=== PATIENT | male | born 1950 | race Caucasian/White ===

== ENCOUNTER 2016-03-12 11:00 | Inpatient (IN) | payer MEDICARE, BC ==
[2016-03-12] VITALS (13 sets, daily range): BP systolic 94–135; BP diastolic 57–85; PULSE 64–76; RESP 16–20; TEMP 97.7–98.1; O2SAT 94–97
[~2016-03-12] VITALS: Ht 177.8 cm; Wt 72.5 kg
[2016-03-12] MEDS ORDERED: PIPERACIL-TAZO 4.5 GM PREMIX 100 ML IV STA (11:28)
[2016-03-12] MEDS ORDERED: VANCOMYCIN INJ 1,000 MG in SODIUM CHLOR 0.9% 250 ML INJ 250 ML IV STA (11:28)
--- NOTE | 2016-03-12 11:39 | PD ---
HPI Chief Complaint: Skin Problem Time Seen by Provider: 11:33 Travel History International Travel<30 days: Yes Contact w/Intl Traveler<30days: Yes Name of Country Traveled to: [facility] Traveled to known affect area: No History of Present Illness HPI Patient comes in at the advice of his primary care doctor and his disability aide for admission for IV antibiotics. Patient reports he had an MRI done last Saturday was found out on to have osteomyelitis in his right second toe. Patient was referred to infectious disease for IV antibiotics however patient was not able to get in with them yet and was instructed to come to the hospital today for admission and to start antibiotics. Patient states he was taking oral antibiotics most recently Bactrim however is been dealing with this infection in his toe for 2 months now. Patient reports some tenderness around the proximal phalanx of the right second toe without radiation. Pain is worse with palpation. Patient denies any drainage from the wound currently. Denies any fevers, nausea, vomiting, chest pain, shortness of breath, or abdominal pain. Patient's primary care doctor is Dr. Blunt and disability aide is Dr. Faust. [facility] Past Medical History Narrative Medical Hemachromatosis Hypertension: Yes Social History Alcohol Use: Yes Tobacco Use: No Substance Use: No Allergies-Medications (Allergen,Severity, Reaction): Coded Allergies: Vicodin (Verified Allergy, Severe, Hives, 03/12/16) Review of Systems Except as stated in HPI: all other systems reviewed are Neg Physical Exam Narrative GENERAL: Well-developed, well nourished, in no acute distress, and non-ill appearing. SKIN: Warm and dry. Erythematous wound noted medial aspect of right second toe proximal phalanx is tender to palpation there is no drainage, crepitus, or streaking noted. HEAD: Atraumatic. Normocephalic. EYES: Pupils equal and round. No scleral icterus. No injection or drainage. ENT: No nasal bleeding or discharge. Mucous membranes pink and moist. NECK: Trachea midline. Supple. No nuclear rigidity. CARDIOVASCULAR: Regular rate and rhythm. No murmur appreciated. Capillary refill less than 2 seconds. RESPIRATORY: No accessory muscle use. No respiratory distress. Clear to auscultation. Breath sounds equal bilaterally. MUSCULOSKELETAL: No obvious deformities. No clubbing. No cyanosis. No edema. Full range of motion. NEUROLOGICAL: Awake and alert. No obvious cranial nerve deficits. Motor grossly within normal limits. Normal speech. PSYCHIATRIC: Appropriate mood and affect; insight and judgment normal. Data Data Last Documented VS Vital Signs Date Time Temp Pulse Resp B/P Pulse Ox O2 Delivery O2 Flow Rate FiO2 03/12/16 11:35 64 18 135/72 95 Room Air 03/12/16 11:02 97.9 Orders Complete Blood Count With Diff (03/12/16 11:28) Comprehensive Metabolic Panel (03/12/16 11:28) Prothrombin Time / Inr (Pt) (03/12/16 11:28) Act Partial Throm Time (Ptt) (03/12/16 11:28) Lactic Acid Sepsis Protocol (03/12/16 11:28) Blood Culture (03/12/16 11:28) Wound Culture And Gram Stain (03/12/16 11:28) Ecg Monitoring (03/12/16 11:28) Iv Access Insert/Monitor (03/12/16 11:28) Oximetry (03/12/16 11:28) Piperacil-Tazo 4.5 Gm Premix (Zosyn 4.5 (03/12/16 11:28) Vancomycin Inj (Vancomycin Inj) (03/12/16 11:28) Admit Order (Ed Use Only) (03/12/16 12:24) Labs Laboratory Tests Test 03/12/16 11:35 White Blood Count 3.8 TH/MM3 Red Blood Count 4.66 MIL/MM3 Hemoglobin 15.1 GM/DL Hematocrit 43.5 % Mean Corpuscular Volume 93.2 FL Mean Corpuscular Hemoglobin 32.4 PG Mean Corpuscular Hemoglobin 34.7 % Concent Red Cell Distribution Width 13.6 % Platelet Count 188 TH/MM3 Mean Platelet Volume 8.6 FL Neutrophils (%) (Auto) 53.8 % Lymphocytes (%) (Auto) 29.9 % Monocytes (%) (Auto) 8.6 % Eosinophils (%) (Auto) 4.5 % Basophils (%) (Auto) 3.2 % Neutrophils # (Auto) 2.1 TH/MM3 Lymphocytes # (Auto) 1.1 TH/MM3 Monocytes # (Auto) 0.3 TH/MM3 Eosinophils # (Auto) 0.2 TH/MM3 Basophils # (Auto) 0.1 TH/MM3 CBC Comment DIFF FINAL Differential Comment Prothrombin Time 11.2 SEC Prothromb Time International 1.0 RATIO Ratio Activated Partial 26.1 SEC Thromboplast Time Sodium Level 138 MEQ/L Potassium Level 4.6 MEQ/L Chloride Level 107 MEQ/L Carbon Dioxide Level 23.2 MEQ/L Anion Gap 8 MEQ/L Blood Urea Nitrogen 19 MG/DL Creatinine 0.98 MG/DL Estimat Glomerular Filtration 77 ML/MIN Rate Random Glucose 103 MG/DL Lactic Acid Level 1.1 mmol/L Calcium Level 8.7 MG/DL Total Bilirubin 0.6 MG/DL Aspartate Amino Transf 22 U/L (AST/SGOT) Alanine Aminotransferase 29 U/L (ALT/SGPT) Alkaline Phosphatase 49 U/L Total Protein 7.1 GM/DL Albumin 3.9 GM/DL MDM Medical Decision Making Medical Screen Exam Complete: Yes Emergency Medical Condition: Yes Differential Diagnosis Osteomyelitis, nonhealing wound, bacteremia, sepsis, other Narrative Course Patient seen and examined. Initial laboratory studies were ordered. Patient started on IV Zosyn and vancomycin. Discussed patient with Dr. Sethi, who saw and evaluated the patient and is in agreement with plan of care and disposition. Discussed all findings and plan care of patient, who was agreeable for admission. All questions were answered. Physician Communication Physician Communication [id number] Costa, who is agreeable to admit the patient. Diagnosis Primary Impression: Osteomyelitis Qualified Code: M86.171 - Acute osteomyelitis of right foot Condition: Stable Surya Duenas Mar 12, 2016 11:39
[2016-03-12 11:56] LABS: AUTOMATED NEUTROPHIL # 2.1 TH/MM3 (1.8-7.7); BASOPHIL # 0.1 TH/MM3 (0-0.2); BASOPHIL % 3.2 % (0.0-2.0); EOSINOPHIL # 0.2 TH/MM3 (0-0.4); EOSINOPHIL % 4.5 % (0.0-4.0); HEMATOCRIT 43.5 % (39.0-51.0); HEMO FLAGS DIFF FINAL; LYMPH % 29.9 % (9.0-44.0); LYMPHOCYTE # 1.1 TH/MM3 (1.0-4.8); MEAN CELL VOLUME 93.2 FL (80.0-100.0); MEAN CORPUSCULAR HEMOGLOBIN 32.4 PG (27.0-34.0); MEAN CORPUSCULAR HGB CONC 34.7 % (32.0-36.0); MONO % 8.6 % (0.0-8.0); NEUT % 53.8 % (16.0-70.0); PLATELET COUNT 188 TH/MM3 (150-450); RED BLOOD COUNT 4.66 MIL/MM3 (4.50-5.90); RED CELL DISTRIBUTION WIDTH 13.6 % (11.6-17.2); WHITE BLOOD COUNT 3.8 TH/MM3 (4.0-11.0)
[2016-03-12 11:59] LABS: APTT (PATIENT) 26.1 SEC (24.3-30.1); PROTHROMBIN TIME - PATIENT 11.2 SEC (9.8-11.6)
[2016-03-12 12:09] LABS: ALKALINE PHOSPHATASE 49 U/L (45-117); TOTAL BILIRUBIN ADULT 0.6 MG/DL (0.2-1.0)
[2016-03-12 12:10] LABS: ALT (GPT) 29 U/L (12-78); ANION GAP 8 MEQ/L (5-15); AST (GOT) 22 U/L (15-37); BICARBONATE 23.2 MEQ/L (21.0-32.0); BLOOD UREA NITROGEN 19 MG/DL (7-18); CHLORIDE 107 MEQ/L (98-107); GLOMERULAR FILTRATION RATE 77 ML/MIN (>89); SODIUM (NA) 138 MEQ/L (136-145)
[2016-03-12 12:14] LABS: POTASSIUM 4.6 MEQ/L (3.5-5.1)
[2016-03-12] MEDS ORDERED: DIAZ10 PO (12:35)
[2016-03-12] MEDS ORDERED: MOBI15TA PO (12:35)
[2016-03-12] MEDS ORDERED: TAMS0.4C4 PO (12:35)
[2016-03-12] MEDS ORDERED: PROS5TAB PO (12:35)
[2016-03-12] MEDS ORDERED: AMLO5TAB2 PO (12:35)
[2016-03-12] MEDS ORDERED: PERC5TAB12 PO (12:35)
[2016-03-12] MEDS ORDERED: OMEP20TA PO (12:42)
--- NOTE | 2016-03-12 13:40 | PD ---
Physical Exam Date Seen by Provider: Mar 12, 2016 Time Seen by Provider: 11:30 Narrative I, Dr. Sethi, have reviewed the advance practice practitioner's documentation and am in agreement, met with the patient face to face, made the diagnosis, and the medical decision making was done by me. *My assessment and Findings: Patient seen and evaluated with PA, please see PA documentation for further details. Here sent in by primary care physician and podiatry for osteomyelitis of the toe. Blood cultures are done and IV antibiotic were initiated in the ER. Patient is admitted to medicine service. He appears stable otherwise vital signs are stable. Laboratory Tests Test 03/12/16 11:35 White Blood Count 3.8 TH/MM3 (4.0-11.0) Monocytes (%) (Auto) 8.6 % (0.0-8.0) Eosinophils (%) (Auto) 4.5 % (0.0-4.0) Basophils (%) (Auto) 3.2 % (0.0-2.0) Blood Urea Nitrogen 19 MG/DL (7-18) Estimat Glomerular Filtration 77 ML/MIN (>89) Rate Data Data Last Documented VS Vital Signs Date Time Temp Pulse Resp B/P Pulse Ox O2 Delivery O2 Flow Rate FiO2 03/12/16 11:35 64 18 135/72 95 Room Air 03/12/16 11:02 97.9 Orders Complete Blood Count With Diff (03/12/16 11:28) Comprehensive Metabolic Panel (03/12/16 11:28) Prothrombin Time / Inr (Pt) (03/12/16 11:28) Act Partial Throm Time (Ptt) (03/12/16 11:28) Lactic Acid Sepsis Protocol (03/12/16 11:28) Blood Culture (03/12/16 11:28) Wound Culture And Gram Stain (03/12/16 11:28) Ecg Monitoring (03/12/16 11:28) Iv Access Insert/Monitor (03/12/16 11:28) Oximetry (03/12/16 11:28) Piperacil-Tazo 4.5 Gm Premix (Zosyn 4.5 (03/12/16 11:28) Vancomycin Inj (Vancomycin Inj) (03/12/16 11:28) Admit Order (Ed Use Only) (03/12/16 12:24) Labs Laboratory Tests Test 03/12/16 11:35 White Blood Count 3.8 TH/MM3 Red Blood Count 4.66 MIL/MM3 Hemoglobin 15.1 GM/DL Hematocrit 43.5 % Mean Corpuscular Volume 93.2 FL Mean Corpuscular Hemoglobin 32.4 PG Mean Corpuscular Hemoglobin 34.7 % Concent Red Cell Distribution Width 13.6 % Platelet Count 188 TH/MM3 Mean Platelet Volume 8.6 FL Neutrophils (%) (Auto) 53.8 % Lymphocytes (%) (Auto) 29.9 % Monocytes (%) (Auto) 8.6 % Eosinophils (%) (Auto) 4.5 % Basophils (%) (Auto) 3.2 % Neutrophils # (Auto) 2.1 TH/MM3 Lymphocytes # (Auto) 1.1 TH/MM3 Monocytes # (Auto) 0.3 TH/MM3 Eosinophils # (Auto) 0.2 TH/MM3 Basophils # (Auto) 0.1 TH/MM3 CBC Comment DIFF FINAL Differential Comment Prothrombin Time 11.2 SEC Prothromb Time International 1.0 RATIO Ratio Activated Partial 26.1 SEC Thromboplast Time Sodium Level 138 MEQ/L Potassium Level 4.6 MEQ/L Chloride Level 107 MEQ/L Carbon Dioxide Level 23.2 MEQ/L Anion Gap 8 MEQ/L Blood Urea Nitrogen 19 MG/DL Creatinine 0.98 MG/DL Estimat Glomerular Filtration 77 ML/MIN Rate Random Glucose 103 MG/DL Lactic Acid Level 1.1 mmol/L Calcium Level 8.7 MG/DL Total Bilirubin 0.6 MG/DL Aspartate Amino Transf 22 U/L (AST/SGOT) Alanine Aminotransferase 29 U/L (ALT/SGPT) Alkaline Phosphatase 49 U/L Total Protein 7.1 GM/DL Albumin 3.9 GM/DL [facility] Medical Record Reviewed: Yes Supervised Visit with ERLIN: Yes Diagnosis Primary Impression: Osteomyelitis Qualified Code: M86.171 - Acute osteomyelitis of right foot Admitting Information Admitting Physician Requests: Admit Condition: Stable Bradley Sethi MD Mar 12, 2016 13:39
--- NOTE | 2016-03-12 15:28 | HHI.HP ---
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 Patient presented to the emergency room for evaluation of right foot second toe swelling with increased drainage and redness. Patient endorses that approximately 2-3 months ago noted that a pressure area on the second toe of the right foot due to a joint deformity. He saw a broadband installer who ordered a spacer to put between his toes. Over time, he noted increased redness, which led to an ulcerated area that was deep enough that you "could put tip of pencil ". In January, patient traveled to the [facility], where he has a home. While over there, he did a lot of walkiing and noted increased swelling. His squeezed "pus" out of it. He went to see a friend of his who is a surgeon in the [facility] and was told to return to the [facility] and see a broadband installer for possible debridement and antibiotics. Patient went to see Dr. Faust for the first time 2 weeks ago. He was put on oral antibiotics and Santyl ointment. Additionally an MRI was done that showed osteomyelitis. According to the , patient was supposed to follow-up with Dr. Laurent (Infectious disease ) for IV antibiotics but they were not able to obtain an appointment. Patient states that the redness has increased, the wound is not as deep but continues to be tender with some lovell drainage. He's had some chills, no fever. Patient presented to the emergency room as he was concerned that the infection was not improving and he was not able to get in to see infectious disease management consultant. He denies any other symptoms, no chest pain, no shortness of breath, no nausea, no vomiting, no diarrhea. He completed antibiotics-Bactrim this morning. Cultures were obtained at Dr. Faust but doesn't know results. Patient states that his hemochromatosis is stable, his last phlebotomy was many years ago, they used to be more frequently. Ferritin levels have been stable. He was originally diagnosed in 1993. Other than the joint problems, he has no other complications associated with condition. Pt. was evaluated in the emergency room , laboratory workup was completed and was essentially unremarkable. No WBC elevation, lactic acid was normal. Cultures were obtained, patient was started on empiric antibiotics. Patient is admitted for further evaluation and treatment. (Terri Valdes) Review of Systems Constitutional: COMPLAINS OF: Chills, DENIES: Diaphoretic episodes, Fatigue, Fever, Weight gain, Weight loss, Dizziness, Change in appetite, Night Sweats Endocrine: DENIES: Heat/cold intolerance, Polydipsia, Polyuria, Polyphagia Eyes: DENIES: Blurred vision, Diplopia, Eye inflammation, Eye pain, Vision loss , Photosensitivity, Double Vision Ears, nose, mouth, throat: DENIES: Tinnitus, Hearing loss, Vertigo, Nasal discharge, Oral lesions, Throat pain, Hoarseness, Ear Pain, Running Nose, Epistaxis, Sinus Pain, Toothache, Odynophagia Respiratory: DENIES: Apneas, Cough, Snoring, Wheezing, Hemoptysis, Sputum production, Shortness of breath Cardiovascular: DENIES: Chest pain, Palpitations, Syncope, Dyspnea on Exertion , PND, Lower Extremity Edema, Orthopnea, Claudication Gastrointestinal: DENIES: Abdominal pain, Black stools, Bloody stools, Constipation, Diarrhea, Nausea, Vomiting, Difficulty Swallowing, Anorexia Genitourinary: DENIES: Sexual dysfunction, Urinary frequency, Urinary incontinence, Urgency, Hematuria, Dysuria, Nocturia, Penile Discharge, Testicular Pain, Testicular Swelling Musculoskeletal: COMPLAINS OF: Joint pain, Joint Swelling, DENIES: Muscle aches, Stiffness, Back pain, Neck pain Integumentary: DENIES: Abnormal pigmentation, Nail changes, Pruritus, Rash Hematologic/lymphatic: DENIES: Bruising, Lymphadenopathy Immunologic/allergic: DENIES: Eczema, Urticaria Neurologic: DENIES: Abnormal gait, Headache, Localized weakness, Paresthesias, Seizures, Speech Problems, Tremor, Poor Balance Psychiatric: DENIES: Anxiety, Confusion, Mood changes, Depression, Hallucinations, Agitation, Suicidal Ideation, Homicidal Ideation, Delusions ( Terri Valdes) Past Family Social History Past Medical History Hemochromatosis, diagnosed in 1993, used to have frequent phlebotomies, last one was many years ago. Condition is managed by primary care Osteoarthritis Hypertension BPH Was told that he has vascular disease, possibly varicose, has not been formally diagnosed Past Surgical History Bilateral knee replacement Left hip replacement Right rotator cuff repair Hernia surgery Reported Medications Reported Meds & Active Scripts Active Reported Omeprazole 20 Mg Tab 20 Mg PO DAILY Mobic (Meloxicam) 15 Mg Tab 15 Mg PO DAILY Amlodipine (Amlodipine Besylate) 5 Mg Tab 5 Mg PO HS Tamsulosin (Tamsulosin HCl) 0.4 Mg Cap 0.4 Mg PO DAILY Proscar (Finasteride) 5 Mg Tab 5 Mg PO DAILY Do not crush. Valium (Diazepam) 10 Mg Tab 10 Mg PO HS PRN Percocet (Oxycodone-Acetaminophen) 5-325 mg Tab 1 Tab PO Q6H PRN (Terri Valdes) Allergies: Coded Allergies: Vicodin (Verified Allergy, Severe, Hives, 03/12/16) Active Ordered Medications Inpatient Medications Amlodipine Besylate (Norvasc) 5 mg HS PO ; Start 03/12/16 at 21:00 Clindamycin Phosphate/Sodium Chloride (Cleocin Inj/NS Inj) 104 ml @ 208 mls/hr Q8H IV ; Start 03/12/16 at 14:00 Diazepam (Valium) 10 mg HS PRN PO INSOMNIA; Start 03/12/16 at 14:00 Finasteride (Proscar) 5 mg DAILY PO ; Start 03/13/16 at 09:00 Levofloxacin/ Dextrose 100 ml @ 100 mls/hr Q24H IV ; Start 03/12/16 at 15:00 Meloxicam (Mobic) 15 mg DAILY PO ; Start 03/13/16 at 09:00 Oxycodone/ Acetaminophen (Percocet 5-325 Mg) 1 tab Q6H PRN PO PAIN; Start at 14:00 Pantoprazole Sodium (Protonix) 20 mg DAILY PO ; Start 03/13/16 at 09:00 Piperacillin Sod/ Tazobactam Sod 100 ml @ 200 mls/hr ONCE STAT IV Last administered on 03/12/16t 11:46; Start 03/12/16 at 11:28; Stop 03/12/16 at 11:57 ; Status DC Tamsulosin HCl 0.4 mg 0.4 mg DAILY PO ; Start 03/13/16 at 09:00 Vancomycin HCl/ Sodium Chloride (Vancomycin Inj/ NS 250 ml Inj) 250 ml @ 250 mls/hr ONCE STAT IV Last administered on 03/12/16t 13:41; Start 03/12/16 at 11 :28; Stop 03/12/16 at 12:27; Status DC Family History Mother's disease, history of Alzheimer's Father , history of hemochromatosis with cardiovascular involvement, history of CAD, CABG, [place] Brother, , from glioblastoma Social History , lives with . Retired. Spends rodriguez in [facility]. No smoking, drinks beer daily 6-7 daily, an occasional "bowl" of Marijuana to help him sleep. (Terri Valdes) Physical Exam Vital Signs Vital Signs Date Time Temp Pulse Resp B/P Pulse Ox O2 Delivery O2 Flow Rate FiO2 03/12/16 11:35 64 18 135/72 95 Room Air 03/12/16 11:02 97.9 76 20 128/85 95 Room Air Physical Exam GENERAL: This is a well-nourished, well-developed patient, in no apparent distress. SKIN: Round, erythematous wound noted medial aspect of right second toe proximal phalanx, tender to palpation, no drainage, crepitus, or streaking noted. HEAD: Atraumatic. Normocephalic. HEAD: Atraumatic. Normocephalic. No temporal or scalp tenderness. EYES: Pupils equal round and reactive. Extraocular motions intact. No scleral icterus. No injection or drainage. ENT: Nose without bleeding, purulent drainage or septal hematoma. Throat without erythema, tonsillar hypertrophy or exudate. Uvula midline. Airway patent. NECK: Trachea midline. No JVD or lymphadenopathy. Supple, nontender, no meningeal signs. CARDIOVASCULAR: Regular rate and rhythm without murmurs, gallops, or rubs. RESPIRATORY: Clear to auscultation. Breath sounds equal bilaterally. No wheezes , rales, or rhonchi. GASTROINTESTINAL: Abdomen soft, non-tender, nondistended. No hepato-splenomegaly , or palpable masses. No guarding. MUSCULOSKELETAL: Extremities without clubbing, cyanosis, or edema. Bilat pedal pulses 2+. Joint deformities to toes. Webbed toes to left foot, second and third toes. Right foot second toe with wound as noted above. NEUROLOGICAL: Awake, alert, oriented x 3. No focal deficits. Laboratory Laboratory Tests Test 03/12/16 11:35 White Blood Count 3.8 Red Blood Count 4.66 Hemoglobin 15.1 Hematocrit 43.5 Mean Corpuscular Volume 93.2 Mean Corpuscular Hemoglobin 32.4 Mean Corpuscular Hemoglobin 34.7 Concent Red Cell Distribution Width 13.6 Platelet Count 188 Mean Platelet Volume 8.6 Neutrophils (%) (Auto) 53.8 Lymphocytes (%) (Auto) 29.9 Monocytes (%) (Auto) 8.6 Eosinophils (%) (Auto) 4.5 Basophils (%) (Auto) 3.2 Neutrophils # (Auto) 2.1 Lymphocytes # (Auto) 1.1 Monocytes # (Auto) 0.3 Eosinophils # (Auto) 0.2 Basophils # (Auto) 0.1 CBC Comment DIFF FINAL Differential Comment Prothrombin Time 11.2 Prothromb Time International 1.0 Ratio Activated Partial 26.1 Thromboplast Time Sodium Level 138 Potassium Level 4.6 Chloride Level 107 Carbon Dioxide Level 23.2 Anion Gap 8 Blood Urea Nitrogen 19 Creatinine 0.98 Estimat Glomerular Filtration 77 Rate Random Glucose 103 Lactic Acid Level 1.1 Calcium Level 8.7 Total Bilirubin 0.6 Aspartate Amino Transf 22 (AST/SGOT) Alanine Aminotransferase 29 (ALT/SGPT) Alkaline Phosphatase 49 Total Protein 7.1 Albumin 3.9 Date/Time Procedure Status Source Growth 03/12/16 11:35 Gram Stain Received Wound Toe Pending 03/12/16 11:35 Wound Culture Received Wound Toe Pending 03/12/16 11:35 Aerobic Blood Culture Received Blood Peripheral Pending 03/12/16 11:35 Anaerobic Blood Culture Received Blood Peripheral Pending (Terri ValdesP) Result Diagram: 03/12/16 1135 03/12/16 1135 Assessment and Plan Problem List: (1) Osteomyelitis (2) Hemochromatosis (3) Cellulitis of toe of right foot (4) Alcohol abuse, daily use (5) Hypertension (6) Osteoarthritis (7) Failure of outpatient treatment Assessment and Plan Admit to Dr. Costa 65-year-old white male with history of hemochromatosis with joint deformities, presented to emergency room for evaluation of right foot second toe ulceration that has not improved after being on oral antibiotics. Had MRI done, positive for osteomyelitis. -Continue with empiric antibiotics, follow cultures Dr. Faust has been consulted for evaluation WBC scan ordered per podiatry, follow up on results - Patient indicates he is concerned about losing toe, he will prefer to do IV antibiotics for now. History hemochromatosis, with prior phlebotomy Continue to monitor Hypertension, stable Continue home medications Osteoarthritis, with prior history of joint replacement surgery Continue with home medications Daily alcohol use -Alcohol abuse counseling completed Continue with Valium when necessary We will start folic acid and thiamine -Monitor for withdrawal symptoms SCDs for DVT prophylaxis PPI for GI prophylaxis Plan of care has been discussed with the patient and his , their questions have been answered in detail. Plan of care discussed with attending and registered nurse. Further management of the patient will be dependent on the hospital course Patient requires inpatient admission for anticipated stay greater than 2 days for acute osteomyelitis right foot left toe that has failed outpatient therapy. Patient is at risk for complications that can result in sepsis, loss of limb. Patient requires inpatient admission for IV antibiotics, possible surgery, evaluation by podiatry. Anticipated discharge back to home with home health care when stable This patient was seen by myself and Dr. Costa, this H&P is written on his behalf (Terri Valdes) Assessment and Plan PT is seen & Examined d/w PT d/w Terri alberts w above cont current tx ID & podiatry input awaited will f/u (Radha Costa MD) Physician Certification 2 Midnight Certification Type: Admission for Inpatient Services Order for Inpatient Services The services are ordered in accordance with Medicare regulations or non- Medicare payer requirements, as applicable. In the case of services not specified as inpatient-only, they are appropriately provided as inpatient services in accordance with the 2-midnight benchmark. Estimated LOS (days): 2 2 days is the estimated time the patient will need to remain in the hospital, assuming treatment plan goals are met and no additional complications. Post-Hospital Plan: Home Health (Terri Valdes) Problem Qualifiers (1) Osteomyelitis: Qualified Code: M86.171 - Acute osteomyelitis of right foot (2) Hemochromatosis: Qualified Code: E83.118 - Other hemochromatosis (3) Hypertension: Qualified Code: I10 - Essential hypertension (4) Osteoarthritis: Qualified Code: M19.90 - Osteoarthritis, unspecified osteoarthritis type, unspecified site Terri Valdes Mar 12, 2016 15:28 Radha Costa MD Mar 12, 2016 17:35
[2016-03-12] MEDS: CLINDAMYCIN INJ 600 MG in SODIUM CHLORIDE 0.9% INJ 100 ML IV SCH ×2 (17:29→23:12)
[2016-03-12] MEDS: LEVOFLOXACIN 500 MG PREMIX INJ 100 ML IV SCH (17:54)
[2016-03-12] MEDS: DIAZEPAM 10 MG TAB PO PRN (23:20)
[2016-03-12] MEDS: amLODIPine BESYLATE 5 MG TAB PO SCH (23:20)
[2016-03-13] VITALS: BP 125/76; PULSE 64; RESP 17; TEMP 96.7; O2SAT 96
[2016-03-13] MEDS: CLINDAMYCIN INJ 600 MG in SODIUM CHLORIDE 0.9% INJ 100 ML IV SCH ×4 (05:06→21:31)
--- NOTE | 2016-03-13 07:50 | PD.CONS ---
History of Present Illness Service Podiatry Consult Requested By ED Reason for Consult Osteomyelitis Primary Care Physician Waldemar Ventura, Diagnoses: History of Present Illness 65-year-old male presented to the emergency room for evaluation of right foot second toe swelling with increased drainage and redness. Patient states that approximately 2-3 months ago noted that he had an area of pressure developing on the second toe of the right foot due to a joint deformity. He saw a operations analyst who ordered a spacer to put between his toes. He then notes increased redness and ulceration. He then traveled to the [facility], where he has a home. While over there, he continued to do a lot of walking, in spite of the issue, and his noted pus in the area. ling. He saw a surgeon friend in [facility] who told him to seek care immediately upon his return to the [facility]. Patient went to see Dr. Faust for the first time 2 weeks ago. He was put on oral antibiotics and Santyl ointment. Additionally an MRI was done that showed probable osteomyelitis, and patient was scheduled to consult with Dr. Laurent outpatient for IV antibiotics, but the redness has increased, and patient came in to ED for eval. Past Family Social History Allergies: Coded Allergies: Vicodin (Verified Allergy, Severe, Hives, 03/12/16) Past Medical History Hemochromatosis Osteoarthritis Hypertension BPH Likely PVD, needs vascular consultation in-house to confirm Past Surgical History Bilateral knee replacement Left hip replacement Right rotator cuff repair Hernia surgery Active Ordered Medications Current Medications Medications (Trade) Dose Ordered Sig/Ameena Route Start Time Stop Time Status Last Admin (Norvasc) 5 mg HS PO 03/12/16 21:00 03/12/16 23:20 (Valium) 10 mg HS PRN PO 03/12/16 14:00 03/12/16 23:20 (Proscar) 5 mg DAILY PO 03/13/16 09:00 (Mobic) 15 mg DAILY PO 03/13/16 09:00 (Protonix) 20 mg DAILY PO 03/13/16 09:00 (Percocet 5-325 Mg) 1 tab Q6H PRN PO 03/12/16 14:00 Tamsulosin HCl 0.4 mg 0.4 mg DAILY PO 03/13/16 09:00 Levofloxacin/ Dextrose 100 ml @ 100 mls/hr Q24H IV 03/12/16 15:00 03/12/16 17:54 (Cleocin Inj/NS Inj) 104 ml @ 208 mls/hr Q8H IV 03/12/16 14:00 03/13/16 05:06 (Folate) 1 mg DAILY PO 03/13/16 09:00 (Vitamin B1) 100 mg DAILY PO 03/13/16 09:00 Family History Mother's disease, history of Alzheimer's Father , history of hemochromatosis with cardiovascular involvement, history of CAD, CABG, NM Brother, , from glioblastoma Social History , lives with . Retired. Spends [place]dr[place] in [facility]. Denies smoking, drinks beer daily 6-7 daily, and occasional Marijuana Physical Exam Vital Signs Vital Signs Date Time Temp Pulse Resp B/P Pulse Ox O2 Delivery O2 Flow Rate FiO2 03/13/16 04:12 03/13/16 00:00 96.7 64 17 125/76 96 03/12/16 20:58 97.7 70 17 112/58 97 03/12/16 19:34 98.1 72 18 108/67 96 Room Air 03/12/16 19:16 67 18 112/65 95 Room Air 03/12/16 19:14 65 18 95 03/12/16 18:00 67 18 98/64 96 Room Air 03/12/16 17:00 67 18 94/57 96 Room Air 03/12/16 16:00 72 16 102/60 95 Room Air 03/12/16 15:00 65 18 117/71 95 03/12/16 14:00 64 18 118/68 94 03/12/16 13:00 66 18 115/66 94 03/12/16 12:00 68 18 114/68 95 Room Air 03/12/16 11:35 64 18 135/72 95 Room Air 03/12/16 11:02 97.9 76 20 128/85 95 Room Air Physical Exam R 2nd digit medial PIPJ ulceration with fibrotic base. No visible/palpable bone now. No gross edema or erythema. Mild serous drainage. Palpable pedal pulse. Webbing to 2nd/3rd digits bilaterally. Bony prominence medially to PIPJ 2nd digit bilaterally Laboratory Laboratory Tests Test 03/12/16 03/13/16 11:35 04:51 White Blood Count 3.8 Red Blood Count 4.66 Hemoglobin 15.1 Hematocrit 43.5 Mean Corpuscular Volume 93.2 Mean Corpuscular Hemoglobin 32.4 Mean Corpuscular Hemoglobin 34.7 Concent Red Cell Distribution Width 13.6 Platelet Count 188 Mean Platelet Volume 8.6 Neutrophils (%) (Auto) 53.8 Lymphocytes (%) (Auto) 29.9 Monocytes (%) (Auto) 8.6 Eosinophils (%) (Auto) 4.5 Basophils (%) (Auto) 3.2 Neutrophils # (Auto) 2.1 Lymphocytes # (Auto) 1.1 Monocytes # (Auto) 0.3 Eosinophils # (Auto) 0.2 Basophils # (Auto) 0.1 CBC Comment DIFF FINAL Differential Comment Prothrombin Time 11.2 Prothromb Time International 1.0 Ratio Activated Partial 26.1 Thromboplast Time Sodium Level 138 Potassium Level 4.6 Chloride Level 107 Carbon Dioxide Level 23.2 Anion Gap 8 Blood Urea Nitrogen 19 Creatinine 0.98 Estimat Glomerular Filtration 77 Rate Random Glucose 103 Lactic Acid Level 1.1 Calcium Level 8.7 Total Bilirubin 0.6 Aspartate Amino Transf 22 (AST/SGOT) Alanine Aminotransferase 29 (ALT/SGPT) Alkaline Phosphatase 49 Total Protein 7.1 Albumin 3.9 Erythrocyte Sedimentation Rate 3 C-Reactive Protein LESS THAN 0.29 Date/Time Procedure Status Source Growth 03/12/16 11:35 Gram Stain - Final Resulted Wound Toe 03/12/16 11:35 Wound Culture Resulted Wound Toe Pending 03/12/16 11:35 Aerobic Blood Culture Received Blood Peripheral Pending 03/12/16 11:35 Anaerobic Blood Culture Received Blood Peripheral Pending Result Diagram: 03/12/16 1135 03/12/16 1135 Imaging Ceretec WBC scan pending Assessment and Plan Assessment and Plan Possible osteomyelitis R foot 2nd toe Bony exostosis L 2nd toe Ceretec scan pending to determine further treatment Continue IV antibiotics Patient discussed that if infected, he would like to move forward with amputation R 2nd toe and is interested in bone removal L 2nd toe Chance North DPM Mar 13, 2016 07:50
[2016-03-13 08:00] VITALS: BP 138/80; PULSE 81; RESP 16; TEMP 95.3; O2SAT 97
[2016-03-13] MEDS: MELOXICAM 15 MG TAB PO SCH (08:27)
[2016-03-13] MEDS: THIAMINE HCL 100 MG TAB PO SCH (08:27)
[2016-03-13] MEDS: FINASTERIDE 5 MG TAB PO SCH (08:27)
[2016-03-13] MEDS: PANTOPRAZOLE SOD 20 MG DELAYED RELEASE TAB PO SCH (08:27)
[2016-03-13] MEDS: TAMSULOSIN HCL 0.4 MG CAP PO SCH (08:27)
[2016-03-13] MEDS: FOLIC ACID 1 MG TAB PO SCH (08:27)
[2016-03-13 12:00] VITALS: BP 115/73; PULSE 75; RESP 16; TEMP 97.9; O2SAT 96
--- NOTE | 2016-03-13 12:09 | HHI.PR ---
Subjective Subjective Remarks no pain no fever nasal drainage, has seasonal allergies no cp no sob spoke to finishing supervisor, wants to have amputation Review of Systems Constitutional Constitutional Remarks 12 point ROS completed, negative except as noted above Vitals/Results Intake & Output 03/12/16 03/12/16 03/13/16 15:00 23:00 07:00 Intake Total 1180 ml 340 ml Output Total 900 ml 1300 ml Balance 280 ml -960 ml Intake Oral 1180 ml 240 ml IV Total 100 ml Output Urine Total 900 ml 1300 ml # Voids 1 Vital Signs Vital Signs Date Time Temp Pulse Resp B/P Pulse Ox O2 Delivery O2 Flow Rate FiO2 03/13/16 08:00 95.3 81 16 138/80 97 03/13/16 04:12 03/13/16 00:00 96.7 64 17 125/76 96 03/12/16 20:58 97.7 70 17 112/58 97 03/12/16 19:34 98.1 72 18 108/67 96 Room Air 03/12/16 19:16 67 18 112/65 95 Room Air 03/12/16 19:14 65 18 95 03/12/16 18:00 67 18 98/64 96 Room Air 03/12/16 17:00 67 18 94/57 96 Room Air 03/12/16 16:00 72 16 102/60 95 Room Air 03/12/16 15:00 65 18 117/71 95 03/12/16 14:00 64 18 118/68 94 03/12/16 13:00 66 18 115/66 94 CBC/BMP: 03/12/16 1135 03/12/16 1135 Lab Results Laboratory Tests Test 03/13/16 04:51 Erythrocyte Sedimentation Rate 3 mm/hr C-Reactive Protein LESS THAN 0.29 MG/DL Physical Exam General General Appearance: Well Developed, Well Nourished, No Acute Distress, Comfortable Eyes Eye Exam: Pupils Equal, Pupils Reactive Ears & Nose Ears & Nose Exam: Nasal Mucosa [place]line Throat Throat Exam: Oral Mucosa [place] & Moist Neck Neck Exam: Neck Supple, Trachea Midline Pulmonary Resp Exam: Clear Bilaterally, No Distress Cardiology CV Exam: Regular, Good Perfusion Gastrointestinal/Abdomen GI Exam: Soft, Non-Tender, Bowel Sounds Present, Non-Distended Musculoskeletal MS Exam: Good Strength MS Remarks joint deformities to toes webbed toes left foot ulcerated area to right foot second toe, erythematous, fibrotic base Integumentary Skin Exam: Warm, Dry, Ulcer(s) Extremeties Extremities Exam: No Edema, Pedal Pulses Palpable Neurologic Neuro Exam: Alert, Awake, Oriented, Speech Clear, Moving All Extremities, No Focal Deficits Psychiatric Psych Exam: Appropriate Responses VTE Prophylaxis VTE Prophylaxis Device: SCDs Assessment/Plan Problem List: (1) Cellulitis of toe of right foot (2) Osteomyelitis (3) Failure of outpatient treatment (4) Hypertension (5) Osteoarthritis (6) Hemochromatosis (7) Alcohol abuse, daily use Assessment/Plan 65-year-old white male with history of hemochromatosis with joint deformities, presented to emergency room for evaluation of right foot second toe ulceration that has not improved after being on oral antibiotics. Had MRI done, positive for osteomyelitis. -Continue with empiric antibiotics, follow cultures Dr. North has evaluated, waiting for WBC scan. Possible amputation of right foot toe and also bone removal L 2nd toe -pt. agreeable with amputation History hemochromatosis, with prior phlebotomy Continue to monitor Hypertension, stable Continue home medications Osteoarthritis, with prior history of joint replacement surgery Continue with home medications Daily alcohol use-stable -Alcohol abuse counseling completed Continue with Valium when necessary Continue with folic acid and thiamine -Monitor for withdrawal symptoms SCDs for DVT prophylaxis PPI for GI prophylaxis possible surgery tomorrow, f/u wbc scan results C/O seasonal allergies, Claritin 10 mg po daily. D/W RN D/W Dr. Costa D/W pt. This patient was seen by myself and Dr. Costa, this note is written on his behalf Problem Qualifiers (1) Osteomyelitis: Qualified Code: M86.171 - Acute osteomyelitis of right foot (2) Hypertension: Qualified Code: I10 - Essential hypertension (3) Osteoarthritis: Qualified Code: M19.90 - Osteoarthritis, unspecified osteoarthritis type, unspecified site (4) Hemochromatosis: Qualified Code: E83.118 - Other hemochromatosis Terri Valdes Mar 13, 2016 12:09
[2016-03-13] MEDS ORDERED: LORATADINE 10 MG TAB PO ONE (12:15)
--- NOTE | 2016-03-13 13:33 | PD.CONS ---
History of Present Illness Service Infectious disease Consult Requested By Dr Bryce Costa Reason for Consult Evaluate patient with osteomyelitis of the right second toe Primary Care Physician Waldemar Ventura DO Diagnoses: History of Present Illness Patient seen and examined. Records reviewed. Patient is a 65-year-old male admitted to the hospital for further evaluation of his right second toe. Patient has had a deformity on his right second toe and the deformity rubs on his big toe. He saw a shank piece tacker about 11 months ago and he was told to put a spacer between his toes. About 2 months ago he started noticing an ulcer on that deformity on his second toe. Over the last several weeks he started having swelling redness and drainage and he saw a shank piece tacker and he was given an antibiotic orally as well as prescribed Santyl ointment to put over the ulcer. An MRI was done and it showed probable osteomyelitis in the second toe and he was supposed to see an infectious disease specialist as an outpatient, however the redness and the swelling increased so he presented to the hospital for further evaluation and treatment. The redness was mostly on the second toe. He did not develop any redness on the dorsum of his right foot. He has not had any fevers. There's been no other complaint as far as nausea vomiting or diarrhea. Infectious disease consultation requested to evaluate the patient for possible osteomyelitis. Patient is currently being evaluated by podiatry before any surgical intervention is done. According to the patient the redness and the swelling has improved since he's been in the hospital, although he is not really been putting any weight on it as well as not putting any shoe. Review of Systems Constitutional: DENIES: Fever, Chills, Night Sweats Eyes: DENIES: Eye pain Ears, nose, mouth, throat: DENIES: Nasal discharge, Oral lesions, Throat pain, Ear Pain, Sinus Pain, Toothache Respiratory: DENIES: Cough, Sputum production, Shortness of breath Cardiovascular: DENIES: Chest pain, Palpitations, Syncope Gastrointestinal: DENIES: Abdominal pain, Diarrhea, Nausea, Vomiting Genitourinary: DENIES: Urgency, Dysuria Musculoskeletal: COMPLAINS OF: Joint pain, Stiffness Integumentary: DENIES: Rash Immunologic/allergic: DENIES: Urticaria Neurologic: DENIES: Headache Psychiatric: DENIES: Anxiety, Confusion Past Family Social History Allergies: Coded Allergies: Vicodin (Verified Allergy, Severe, Hives, 03/12/16) Past Medical History Hemochromatosis Osteoarthritis Hypertension BPH Past Surgical History Bilateral knee replacement Left hip replacement Right rotator cuff repair Hernia surgery Active Ordered Medications Norvasc Clindamycin Valium Proscar Folic acid Levaquin Claritin Mobic Percocet Protonix Flomax Thiamine Social History , lives with . Retired. No smoking Drinks beer daily 6-7 daily Occasional Marijuana Denies IVDU Physical Exam Vital Signs Vital Signs Date Time Temp Pulse Resp B/P Pulse Ox O2 Delivery O2 Flow Rate FiO2 03/13/16 08:00 95.3 81 16 138/80 97 03/13/16 04:12 03/13/16 00:00 96.7 64 17 125/76 96 03/12/16 20:58 97.7 70 17 112/58 97 03/12/16 19:34 98.1 72 18 108/67 96 Room Air 03/12/16 19:16 67 18 112/65 95 Room Air 03/12/16 19:14 65 18 95 03/12/16 18:00 67 18 98/64 96 Room Air 03/12/16 17:00 67 18 94/57 96 Room Air 03/12/16 16:00 72 16 102/60 95 Room Air 03/12/16 15:00 65 18 117/71 95 03/12/16 14:00 64 18 118/68 94 Physical Exam GENERAL: This is a well-nourished, well-developed male, awake and alert, in no apparent distress. SKIN: Cool and dry. No generalized rash or ecchymosis HEAD: Atraumatic. Normocephalic. No temporal or scalp tenderness. EYES: Thinking entirely. Pupils equal round and reactive. Extraocular movements are full and intact. No scleral icterus. No injection or drainage. ENT: Nose without bleeding, or purulent drainage. Moist oral mucosa. Throat without erythema, or exudate. Uvula midline. Airway patent. NECK: Trachea midline. No JVD or lymphadenopathy. Supple, nontender, no meningeal signs. CARDIOVASCULAR: Regular rate and rhythm without murmurs, gallops, or rubs. RESPIRATORY: Clear to auscultation. Breath sounds equal bilaterally. No wheezes , rales, or rhonchi. GASTROINTESTINAL: Abdomen soft, non-tender, nondistended. No hepato-splenomegaly , or palpable masses. No guarding. MUSCULOSKELETAL: Extremities without clubbing, cyanosis, or edema. No joint tenderness, effusion, or edema noted. No calf tenderness. He has webbed 2nd and 3rd toes bilaterally. There is a small ulcer on medial aspect of 2nd toe, with small amount of yellow drainage and some crusting at the ulcer, and he has mild erythema and swelling on that second toe. No redness seen on dorsum of his R foot. NEUROLOGICAL: Awake and alert. Cranial nerves II through XII intact. Motor and sensory grossly within normal limits. Five out of 5 muscle strength in all muscle groups. Normal speech. PSYCH: NOrmal affect. Calm and cooperative LINE: PIV with no evidence of infection Laboratory Laboratory Tests Test 03/13/16 04:51 Erythrocyte Sedimentation Rate 3 C-Reactive Protein LESS THAN 0.29 Date/Time Procedure Status Source Growth 03/12/16 11:35 Gram Stain - Final Resulted Wound Toe 03/12/16 11:35 Wound Culture Resulted Wound Toe Pending 03/12/16 11:35 Aerobic Blood Culture - Preliminary Resulted Blood Peripheral NO GROWTH IN 1 DAY 03/12/16 11:35 Anaerobic Blood Culture - Preliminary Resulted Blood Peripheral NO GROWTH IN 1 DAY Result Diagram: 03/12/16 1135 03/12/16 1135 Assessment and Plan Assessment and Plan IMPRESSION Cellulitis R second toe, with an ulcer, wiith possible underlying osteomyelitis Hx hemochromatosis RECOMMENDATION Continue Levaquin Give dose of Vanco On Clinda - continue for now Follow C/S Work-up in progress per podiatry If amputation to be done, he will not need long course of IV Abx I will follow along with you Thank you for this consultation Discussed Condition With Explained plan to the patient Cherelle Galvan MD Mar 13, 2016 13:33
[2016-03-13] MEDS: LEVOFLOXACIN 500 MG PREMIX INJ 100 ML IV SCH (14:54)
[2016-03-13 16:00] VITALS: BP 94/66; PULSE 81; RESP 16; TEMP 97.8; O2SAT 95
[2016-03-13 20:00] VITALS: BP 128/75; PULSE 76; RESP 17; TEMP 96.6; O2SAT 98
[2016-03-13] MEDS: amLODIPine BESYLATE 5 MG TAB PO SCH (21:31)
[2016-03-13] MEDS: DIAZEPAM 10 MG TAB PO PRN (21:32)
[2016-03-14] VITALS: BP 121/71; PULSE 71; RESP 17; TEMP 97; O2SAT 98
[2016-03-14] MEDS: CLINDAMYCIN INJ 600 MG in SODIUM CHLORIDE 0.9% INJ 100 ML IV SCH ×3 (05:16→22:45)
[2016-03-14 08:00] VITALS: BP 159/85; PULSE 78; RESP 18; TEMP 95.4; O2SAT 98
[2016-03-14] MEDS: FINASTERIDE 5 MG TAB PO SCH (08:39)
[2016-03-14] MEDS: FOLIC ACID 1 MG TAB PO SCH (08:40)
[2016-03-14] MEDS: LORATADINE 10 MG TAB PO SCH (08:40)
[2016-03-14] MEDS: MELOXICAM 15 MG TAB PO SCH (08:40)
[2016-03-14] MEDS: TAMSULOSIN HCL 0.4 MG CAP PO SCH (08:40)
[2016-03-14] MEDS: PANTOPRAZOLE SOD 20 MG DELAYED RELEASE TAB PO SCH (08:40)
[2016-03-14] MEDS: THIAMINE HCL 100 MG TAB PO SCH (08:40)
--- NOTE | 2016-03-14 10:26 | HHI.PR ---
Subjective History of Present Illness I am OK pain is in control No fever or chills No N/V No abd pain offers no other c/o is at bedside Vitals/Results Intake & Output 03/13/16 03/13/16 03/14/16 15:00 23:00 07:00 Intake Total 480 ml 240 ml 240 ml Output Total 1000 ml 400 ml 500 ml Balance -520 ml -160 ml -260 ml Intake Oral 480 ml 240 ml 240 ml IV Total 0 ml Output Urine Total 1000 ml 400 ml 500 ml Vital Signs Vital Signs Date Time Temp Pulse Resp B/P Pulse Ox O2 Delivery O2 Flow Rate FiO2 03/14/16 08:00 95.4 78 18 159/85 98 03/14/16 00:00 97.0 71 17 121/71 98 03/13/16 20:00 96.6 76 17 128/75 98 03/13/16 16:00 97.8 81 16 94/66 95 03/13/16 12:00 97.9 75 16 115/73 96 CBC/BMP: 03/12/16 1135 03/12/16 1135 Physical Exam General General Appearance: Well Nourished, No Acute Distress, Comfortable Eyes Eye Exam: Pupils Equal, Sclera White, Extraocular Movement Intact Ears & Nose Ears & Nose Exam: Nasal Mucosa Aten Throat Throat Exam: Oral Mucosa Aten & Moist Neck Neck Exam: Neck Supple, Trachea Midline Pulmonary Resp Exam: Clear Bilaterally, Breath Sounds Equal, No Distress Cardiology CV Exam: Regular, Normal Sinus Rhythm Gastrointestinal/Abdomen GI Exam: Soft, Non-Tender, Bowel Sounds Present Musculoskeletal MS Remarks R foot dressing intact Integumentary Skin Exam: Warm, Dry, Ulcer(s) Extremeties Extremities Exam: No Edema, Pedal Pulses Palpable Neurologic Neuro Exam: Alert, Awake, Oriented, Speech Clear, Moving All Extremities Psychiatric Psych Exam: Appropriate Responses VTE Prophylaxis VTE Prophylaxis Device: SCDs Assessment/Plan Problem List: (1) Cellulitis of toe of right foot (2) Osteomyelitis (3) Failure of outpatient treatment (4) Hypertension (5) Osteoarthritis (6) Hemochromatosis (7) Alcohol abuse, daily use Assessment/Plan 65-year-old white male with history of hemochromatosis with joint deformities, presented to emergency room for evaluation of right foot second toe ulceration that has not improved after being on oral antibiotics. Had MRI done, positive for osteomyelitis. -Continue with empiric antibiotics, follow cultures Dr. North has evaluated, waiting for WBC scan. Possible amputation of right foot toe if +ve osteo and also bone removal L 2nd toe. - ID input appreciated - analgesic prn History hemochromatosis, with prior phlebotomy Continue to monitor Hypertension, stable Continue home medications Osteoarthritis, with prior history of joint replacement surgery Continue with home medications Daily alcohol use-stable -Alcohol abuse counseling completed Continue with Valium when necessary Continue with folic acid and thiamine -Monitor for withdrawal symptoms SCDs for DVT prophylaxis PPI for GI prophylaxis Claritin 10 mg po daily. D/W pt. will f/u Problem Qualifiers (1) Osteomyelitis: Qualified Code: M86.171 - Acute osteomyelitis of right foot (2) Hypertension: Qualified Code: I10 - Essential hypertension (3) Osteoarthritis: Qualified Code: M19.90 - Osteoarthritis, unspecified osteoarthritis type, unspecified site (4) Hemochromatosis: Qualified Code: E83.118 - Other hemochromatosis Radha Costa MD Mar 14, 2016 10:26
[2016-03-14 12:00] VITALS: BP 108/54; PULSE 64; RESP 17; TEMP 96.1; O2SAT 95
[2016-03-14] MEDS ORDERED: ONDANSETRON HCL 4 MG/2 ML VIAL IV PUSH ONE (12:00)
[2016-03-14] MEDS ORDERED: ePHEDrine/NS 50 MG/5 ML SYR IV ONE (12:00)
[2016-03-14] MEDS ORDERED: PROPOFOL 200 MG/20 ML AMP IV ONE ×2 (12:00)
[2016-03-14] MEDS: LEVOFLOXACIN 500 MG PREMIX INJ 100 ML IV SCH (14:38)
--- NOTE | 2016-03-14 15:03 | RADRPT ---
EXAM DATE/TIME: 03/13/2016 13:45 [facility] COMPARISON: No previous studies available for comparison. EXTERNAL COMPARISON : [facility], MRI Right Foot W/WO Contrast, March 06, 2016 INDICATIONS : Abscess second toe right foot. DOSE: 20.1 mCi Tc99m Ceretec labeled white blood cells IV SPECT IMAGIN hrs, 20 hrs IMAGNG: SPECT/CT imaging with fusion was performed. RADIATION DOSE: 5.83 CTDIvol (mGy) MEDICAL HISTORY : Hypertension. Peripheral vascular disease. Hemochromatosis. SURGICAL HISTORY : Total knee replacement, left. Total knee replacement, right. Rotator cuff, right. Left hip replaceme nt and hernia surgery. ENCOUNTER: Initial ACUITY: 7 - 11 months PAIN SCALE: 0/10 LOCATION: Foot. TECHNIQUE: Following the in vitro labeling of autologous white cells and reinjection, whole body scan was perfor med at the specified times. SPECT imaging was performed at the specified time in sagittal, axial and coronal planes. Attenuation correction was performed with the computed tomography and both the atten uation correction and non-attenuation corrected data sets were reviewed. FINDINGS: The examinations demonstrates subtle increased uptake in the soft tissues beneath the second and thir d digits of the right foot. There is no bony uptake to suggest osteomyelitis. CONCLUSION: There is some soft tissue uptake surrounding the second digit of the right foot distally, no definite abnormal uptake is seen within the bone to suggest osteomyelitis. Castillo Wood MD on March 14, 2016 at 14:54 Board Certified Radiologist. This report was verified electronically.
[2016-03-14 16:00] VITALS: BP 142/76; PULSE 74; RESP 17; TEMP 95.7; O2SAT 97
[2016-03-14 20:00] VITALS: BP 119/71; PULSE 77; RESP 18; TEMP 95.7; O2SAT 95
[2016-03-14] MEDS ORDERED: GENTAMICIN SULFATE 80 MG/2 ML VIAL ONE (20:36)
[2016-03-14] MEDS ORDERED: LIDOCAINE HCL 2% 50 ML VIAL ONE (20:36)
--- NOTE | 2016-03-14 22:26 | HHI.PR ---
Immediate Post Op Note Procedure Date: Mar 14, 2016 Pre Op Diagnosis: Painful exostosis R and L 2nd toes Post Op Diagnosis: same Surgeon: Chance North DPM Director Of Human Resources(s): Staff Procedure: Partial phalangectomy/ostectomy R and L 2nd toes Findings: Consistent with diagnosis. Chronic wound history to R medial 2nd toe with repetitive infection. Suspicion for osteomyelitis per MRI, WBC Ceretec scan was negative for osteomyelitis. patient consented to procedure bilaterally to reduce infection recurrence and pain. L foot incision made dorsomedially at PIP joint area 2nd toe. Bone exposed and removed to medial proximal phalangeal head. Irrigation with NS, followed by primary closure with 3-0 nylon. Ulceration medial 2nd toe 0.6cm diameter. R foot two semielliptical incisions made to remove medial ulceration to 2nd toe. Bone exposed. Removed medial aspect of proximal phalangeal head, followed by irrigation and primary closure. Bone sent to pathology for gross and micro examination. No necrotic tissue noted. No purulence. No sign of infection. Complications: None Specimen(s) removed: Bone R 2nd toe Bone L 2nd toe, both to pathology Estimated blood loss: Minimal Anesthesia: General, Local (10mL 2% lidocaine plain) Drains: None IVF Tourniquet time (min at mmHg) n/a Patient to: PACU Patient Condition: Good Date/Time of Procedure: SEE SURGICAL CARE RECORD Chance North DPM Mar 14, 2016 22:26
[2016-03-14] MEDS ORDERED: DO NOT ADM ANY ANTICOAGULANT DRUGS XX PRN (22:45)
--- NOTE | 2016-03-14 23:20 | RADRPT ---
EXAM DATE/TIME: 03/14/2016 22:34 [facility] COMPARISON: No previous studies available for comparison. INDICATIONS : Post op right foot surgery for osteomyelitis. MEDICAL HISTORY : Osteomyelitis. Hypertension. Peripheral vascular disease. Hemochromatosis. SURGICAL HISTORY : Total knee replacement, left. Total knee replacement, right. Rotator cuff, right. Left hip replacemen t and hernia surgery. ENCOUNTER: Initial ACUITY: 1 day PAIN SCORE: 2/10 LOCATION: Right foot. FINDINGS: Three view examination of the right foot demonstrates primary degenerative changes involving the righ t foot. No acute fracture or joint dislocation. The bony structures are grossly intact. There is prom inent chronic changes at the ankle joint. There is a small heel spur. No focal soft tissue swelling.. CONCLUSION: Primary degenerative changes are seen throughout the right foot. Ke Jolly MD on March 14, 2016 at 23:17 Board Certified Radiologist. This report was verified electronically.
--- NOTE | 2016-03-14 23:21 | RADRPT ---
EXAM DATE/TIME: 03/14/2016 22:37 [facility] COMPARISON: No previous studies available for comparison. INDICATIONS : Post op left foot surgery for osteomyelitis. MEDICAL HISTORY : Osteomyelitis. Hypertension. Peripheral vascular disease. Hemochromatosis. SURGICAL HISTORY : Total knee replacement, left. Total knee replacement, right. Rotator cuff, right. Left hip replacemen t and hernia surgery. ENCOUNTER: Initial ACUITY: 1 day PAIN SCORE: 3/10 LOCATION: Left foot. FINDINGS: Three view examination of the left foot demonstrates primary degenerative changes are noted throughou t the left foot. The bony structures are grossly intact. No acute fracture joint dislocation. There i s prominent degenerative arthritis at the ankle joint. There is a small heel spur. CONCLUSION: Primary degenerative changes are noted throughout the left foot. Ke Jolly MD on March 14, 2016 at 23:19 Board Certified Radiologist. This report was verified electronically.
[2016-03-14] MEDS: amLODIPine BESYLATE 5 MG TAB PO SCH (23:29)
[2016-03-14] MEDS: oxyCODONE/ACETAMINOPHEN 5 MG/325 MG TAB PO PRN (23:29)
[2016-03-14 23:50] LABS: HEMATOCRIT 37.8 % (39.0-51.0); MEAN CELL VOLUME 92.8 FL (80.0-100.0); MEAN CORPUSCULAR HEMOGLOBIN 32.4 PG (27.0-34.0); MEAN CORPUSCULAR HGB CONC 34.9 % (32.0-36.0); PLATELET COUNT 175 TH/MM3 (150-450); RED BLOOD COUNT 4.07 MIL/MM3 (4.50-5.90); RED CELL DISTRIBUTION WIDTH 13.3 % (11.6-17.2); REVIEW FLAG FINAL; WHITE BLOOD COUNT 4.3 TH/MM3 (4.0-11.0)
[2016-03-15] VITALS: BP 177/93; PULSE 81; RESP 18; TEMP 95.4; O2SAT 98
[2016-03-15] MEDS: CLINDAMYCIN INJ 600 MG in SODIUM CHLORIDE 0.9% INJ 100 ML IV SCH (05:35)
[2016-03-15] MEDS: oxyCODONE/ACETAMINOPHEN 5 MG/325 MG TAB PO PRN ×4 (05:36→22:44)
[2016-03-15 08:00] VITALS: BP 125/66; PULSE 79; RESP 17; TEMP 97.4; O2SAT 96
[2016-03-15] MEDS: FINASTERIDE 5 MG TAB PO SCH (09:33)
[2016-03-15] MEDS: PANTOPRAZOLE SOD 20 MG DELAYED RELEASE TAB PO SCH (09:33)
[2016-03-15] MEDS: MELOXICAM 15 MG TAB PO SCH (09:33)
[2016-03-15] MEDS: THIAMINE HCL 100 MG TAB PO SCH (09:33)
[2016-03-15] MEDS: LORATADINE 10 MG TAB PO SCH (09:33)
[2016-03-15] MEDS: TAMSULOSIN HCL 0.4 MG CAP PO SCH (09:33)
[2016-03-15] MEDS: FOLIC ACID 1 MG TAB PO SCH (09:33)
--- NOTE | 2016-03-15 11:38 | HHI.PR ---
Subjective History of Present Illness s/p surgery yesterday pain is in control/pain meds are helping No fever or chills No N/V No abd pain offers no other c/o friend is at bedside Vitals/Results Intake & Output 03/14/16 03/14/16 03/15/16 15:00 23:00 07:00 Intake Total 700 ml 1000 ml 340 ml Output Total 700 ml 305 ml 850 ml Balance 0 ml 695 ml -510 ml Intake Oral 700 ml 0 ml 240 ml IV Total 0 ml 400 ml 100 ml Other 600 ml Output Urine Total 700 ml 300 ml 850 ml Estimated Blood Loss 5 ml Other 0 ml # Bowel Movements 0 Vital Signs Vital Signs Date Time Temp Pulse Resp B/P Pulse Ox O2 Delivery O2 Flow Rate FiO2 03/15/16 08:00 97.4 79 17 125/66 96 03/15/16 00:00 95.4 81 18 177/93 98 03/14/16 23:00 97.9 69 12 146/85 98 Nasal Cannula 3 03/14/16 22:45 69 12 142/94 98 Nasal Cannula 3 03/14/16 22:30 79 14 130/89 99 Nasal Cannula 3 03/14/16 22:23 97.9 87 14 130/90 98 Nasal Cannula 3 03/14/16 20:00 95.7 77 18 119/71 95 03/14/16 16:00 95.7 74 17 142/76 97 03/14/16 12:00 96.1 64 17 108/54 95 CBC/BMP: 03/14/16 2322 03/12/16 1135 Lab Results Laboratory Tests Test 03/14/16 23:22 White Blood Count 4.3 TH/MM3 Red Blood Count 4.07 MIL/MM3 Hemoglobin 13.2 GM/DL Hematocrit 37.8 % Mean Corpuscular Volume 92.8 FL Mean Corpuscular Hemoglobin 32.4 PG Mean Corpuscular Hemoglobin 34.9 % Concent Red Cell Distribution Width 13.3 % Platelet Count 175 TH/MM3 Mean Platelet Volume 8.3 FL Physical Exam General General Appearance: Well Nourished, No Acute Distress, Comfortable Eyes Eye Exam: Pupils Equal, Sclera White, Extraocular Movement Intact Ears & Nose Ears & Nose Exam: Nasal Mucosa [place] Throat Throat Exam: Oral Mucosa [place] & Moist Neck Neck Exam: Neck Supple, Trachea Midline Pulmonary Resp Exam: Clear Bilaterally, Breath Sounds Equal, No Distress Cardiology CV Exam: Regular, Normal Sinus Rhythm Gastrointestinal/Abdomen GI Exam: Soft, Non-Tender, Bowel Sounds Present Musculoskeletal MS Remarks b/l feet dressing intact Integumentary Skin Exam: Warm, Dry, Ulcer(s) Extremeties Extremities Exam: No Edema, Pedal Pulses Palpable Neurologic Neuro Exam: Alert, Awake, Oriented, Speech Clear, Moving All Extremities Psychiatric Psych Exam: Appropriate Responses VTE Prophylaxis VTE Prophylaxis Device: SCDs Assessment/Plan Problem List: (1) Cellulitis of toe of right foot (2) Osteomyelitis (3) Failure of outpatient treatment (4) Hypertension (5) Osteoarthritis (6) Hemochromatosis (7) Alcohol abuse, daily use Assessment/Plan 65-year-old white male with history of hemochromatosis with joint deformities, presented to emergency room for evaluation of right foot second toe ulceration that has not improved after being on oral antibiotics. Had MRI done, positive for osteomyelitis. -Continue with empiric antibiotics, follow cultures s/p WBC scan. neg for osteo - sp I&D R 2 nd toe & l 2 nd toePartial phalangectomy/ostectomy R and L 2nd toes - - wound care / dressing change - ID f/u for abx rec - analgesic prn History hemochromatosis, with prior phlebotomy Continue to monitor Hypertension, stable Continue home medications Osteoarthritis, with prior history of joint replacement surgery Continue with home medications Daily alcohol use-stable -Alcohol abuse counseling completed Continue with Valium when necessary Continue with folic acid and thiamine -Monitor for withdrawal symptoms PPI for GI prophylaxis Claritin 10 mg po daily. ss for d./c planning / d.c home when ok w Podiatry & ID D/W pt. will f/u Problem Qualifiers (1) Osteomyelitis: Qualified Code: M86.171 - Acute osteomyelitis of right foot (2) Hypertension: Qualified Code: I10 - Essential hypertension (3) Osteoarthritis: Qualified Code: M19.90 - Osteoarthritis, unspecified osteoarthritis type, unspecified site (4) Hemochromatosis: Qualified Code: E83.118 - Other hemochromatosis Radha Costa MD Mar 15, 2016 11:38
[2016-03-15 12:00] VITALS: BP 135/74; PULSE 100; RESP 17; TEMP 97.3; O2SAT 95
--- NOTE | 2016-03-15 12:21 | HHI.IDPN ---
Subjective Subjective Remarks Notes reviewed C/O pain R foot Had surgery both feet, to remove bony prominence in the 2 2nd toes. No evidence of infection in R 2nd toe WBC scan negative for osteo Path sent, but no culture sent Antibiotics Levaquin Clindamycin Lines PIV Past Medical History Hemochromatosis Osteoarthritis Hypertension BPH Past Surgical History Bilateral knee replacement Left hip replacement Right rotator cuff repair Hernia surgery Allergies: Coded Allergies: Vicodin (Verified Allergy, Severe, Hives, 03/12/16) Objective . Vital Signs Date Time Temp Pulse Resp B/P Pulse Ox O2 Delivery O2 Flow Rate FiO2 03/15/16 08:00 97.4 79 17 125/66 96 03/15/16 00:00 95.4 81 18 177/93 98 03/14/16 23:00 97.9 69 12 146/85 98 Nasal Cannula 3 03/14/16 22:45 69 12 142/94 98 Nasal Cannula 3 03/14/16 22:30 79 14 130/89 99 Nasal Cannula 3 03/14/16 22:23 97.9 87 14 130/90 98 Nasal Cannula 3 03/14/16 20:00 95.7 77 18 119/71 95 03/14/16 16:00 95.7 74 17 142/76 97 03/14/16 03/14/16 03/15/16 15:00 23:00 07:00 Intake Total 700 ml 1000 ml 340 ml Output Total 700 ml 305 ml 850 ml Balance 0 ml 695 ml -510 ml Intake Oral 700 ml 0 ml 240 ml IV Total 0 ml 400 ml 100 ml Other 600 ml Output Urine Total 700 ml 300 ml 850 ml Estimated Blood Loss 5 ml Other 0 ml # Bowel Movements 0 . Laboratory Tests Test 03/14/16 23:22 White Blood Count 4.3 TH/MM3 Red Blood Count 4.07 MIL/MM3 Hemoglobin 13.2 GM/DL Hematocrit 37.8 % Mean Corpuscular Volume 92.8 FL Mean Corpuscular Hemoglobin 32.4 PG Mean Corpuscular Hemoglobin 34.9 % Concent Red Cell Distribution Width 13.3 % Platelet Count 175 TH/MM3 Mean Platelet Volume 8.3 FL Imaging Foot X-Ray 03/14/16 0000 Signed Impressions: Service Date/Time: Monday, March 14, 2016 22:37 - CONCLUSION: Primary degenerative changes are noted throughout the left foot. Ke Jolly MD Foot X-Ray 1/25/17 0000 Signed Impressions: Service Date/Time: Monday, March 14, 2016 22:34 - CONCLUSION: Primary degenerative changes are seen throughout the right foot. Ke Jolly MD Tumor Localization 03/13/16 0000 Signed Impressions: Service Date/Time: Sunday, March 13, 2016 13:45 - CONCLUSION: There is some soft tissue uptake surrounding the second digit of the right foot distally, no definite abnormal uptake is seen within the bone to suggest osteomyelitis. Castillo Wood MD Physical Exam GENERAL: male, awake and alert, in no apparent distress. SKIN: Cool and dry. No generalized rash or ecchymosis HEENT: No scleral icterus. No injection or drainage. Moist oral mucosa. NECK: Trachea midline. No JVD or lymphadenopathy. Supple, nontender, no meningeal signs. CARDIOVASCULAR: Regular rate and rhythm without murmurs, gallops, or rubs. RESPIRATORY: Clear to auscultation. Breath sounds equal bilaterally. No wheezes , rales, or rhonchi. GASTROINTESTINAL: Abdomen soft, non-tender, nondistended. No guarding. MUSCULOSKELETAL: Extremities without clubbing, cyanosis, or edema.Dry and intact dressings to both feet NEUROLOGICAL: Grossly non-focal PSYCH: NOrmal affect. Calm and cooperative LINE: PIV with no evidence of infection Assessment & Plan Remarks IMPRESSION Cellulitis R second toe, with an ulcer, better - no osteo on WBC scan and on surgery S/P surgery to both second toes Hx hemochromatosis RECOMMENDATION Continue Levaquin Continue Clinda Change Abx to oral and give 10 days D/W Dr Costa Explained to patient Stable from ID standpoint Cherelle Galvan MD Mar 15, 2016 12:21
[2016-03-15] MEDS ORDERED: LEVOFLOXACIN 750 MG TAB PO SCH (14:00)
[2016-03-15] MEDS: CLINDAMYCIN 150 MG CAP PO SCH ×2 (15:28→22:48)
[2016-03-15 16:00] VITALS: BP 117/75; PULSE 87; RESP 17; TEMP 97.1; O2SAT 94
--- NOTE | 2016-03-15 16:09 | EKG ---
Date Performed: 03/14/2016 Time Performed: 15:25:40 PTAGE: 65 years EKG: Sinus rhythm MARKED LEFT AXIS DEVIATION POSSIBLE RIGHT VENTRICULAR CONDUCTION DELAY ABNORMAL ECG NO PREVIOUS TRACING DOCTOR: Zana Ness Interpretating Date/Time 03/15/2016 16:08:19
[2016-03-15 20:00] VITALS: BP 136/93; PULSE 81; RESP 20; TEMP 98.2; O2SAT 93
--- NOTE | 2016-03-15 21:38 | PD.POD ---
Subjective Podiatric Problems R and L painful exostosis, s/p exostectomy/partial phalangectomy R and L 2nd digits Past Med/Surg/Social History Social History Smoking Status: Never Smoker Objective Vital Signs Vital Signs Date Time Temp Pulse Resp B/P Pulse Ox O2 Delivery O2 Flow Rate FiO2 03/15/16 16:00 97.1 87 17 117/75 94 03/15/16 12:00 97.3 100 17 135/74 95 03/15/16 08:00 97.4 79 17 125/66 96 03/15/16 00:00 95.4 81 18 177/93 98 03/14/16 23:00 97.9 69 12 146/85 98 Nasal Cannula 3 03/14/16 22:45 69 12 142/94 98 Nasal Cannula 3 03/14/16 22:30 79 14 130/89 99 Nasal Cannula 3 03/14/16 22:23 97.9 87 14 130/90 98 Nasal Cannula 3 Coded Allergies: Vicodin (Verified Allergy, Severe, Hives, 03/12/16) Physical Exam Remarks Bandages clean, dry, intact R and L foot Assessment & Plan A/P S/p exostectomy R and L 2nd digits 03/14/16 Ok to leave current bandage clean, dry, intact until next Saturday. Follow up in [place] office. Ok with d/c home tomorrow. Weightbearing as tolerated in surgical shoes Chance North DPM Mar 15, 2016 21:38
[2016-03-15] MEDS: amLODIPine BESYLATE 5 MG TAB PO SCH (22:43)
[2016-03-15] MEDS: DIAZEPAM 10 MG TAB PO PRN (22:48)
[2016-03-16] VITALS: BP 128/76; PULSE 76; RESP 18; TEMP 97.4; O2SAT 95
[2016-03-16] MEDS: CLINDAMYCIN 150 MG CAP PO SCH (06:01)
[2016-03-16] MEDS: oxyCODONE/ACETAMINOPHEN 5 MG/325 MG TAB PO PRN (06:01)
[2016-03-16 08:00] VITALS: BP 136/96; PULSE 74; RESP 14; TEMP 97.9; O2SAT 97
[2016-03-16] MEDS: FINASTERIDE 5 MG TAB PO SCH (08:39)
[2016-03-16] MEDS: FOLIC ACID 1 MG TAB PO SCH (08:39)
[2016-03-16] MEDS: MELOXICAM 15 MG TAB PO SCH (08:39)
[2016-03-16] MEDS: LORATADINE 10 MG TAB PO SCH (08:39)
[2016-03-16] MEDS: PANTOPRAZOLE SOD 20 MG DELAYED RELEASE TAB PO SCH (08:39)
[2016-03-16] MEDS: TAMSULOSIN HCL 0.4 MG CAP PO SCH (08:39)
[2016-03-16] MEDS: THIAMINE HCL 100 MG TAB PO SCH (08:39)
--- NOTE | 2016-03-16 10:47 | HHI.PR ---
Subjective History of Present Illness s/p surgery yesterday pain is in control/pain meds are helping No fever or chills No N/V No abd pain offers no other c/o friend is at bedside Vitals/Results Intake & Output 03/15/16 03/15/16 03/16/16 15:00 23:00 07:00 Intake Total 340 ml 480 ml 0 ml Output Total 600 ml 350 ml 600 ml Balance -260 ml 130 ml -600 ml Intake Oral 340 ml 480 ml 0 ml IV Total 0 ml 0 ml Output Urine Total 600 ml 350 ml 600 ml # Bowel Movements 0 Vital Signs Vital Signs Date Time Temp Pulse Resp B/P Pulse Ox O2 Delivery O2 Flow Rate FiO2 03/16/16 08:00 97.9 74 14 136/96 97 03/16/16 00:00 97.4 76 18 128/76 95 03/16/16 00:00 97.4 76 18 128/76 95 03/15/16 20:00 98.2 81 20 136/93 93 03/15/16 16:00 97.1 87 17 117/75 94 03/15/16 12:00 97.3 100 17 135/74 95 CBC/BMP: 03/14/16 2322 03/12/16 1135 Physical Exam General General Appearance: Well Nourished, No Acute Distress, Comfortable Eyes Eye Exam: Pupils Equal, Sclera White, Extraocular Movement Intact Ears & Nose Ears & Nose Exam: Nasal Mucosa [place] Throat Throat Exam: Oral Mucosa [place] & Moist Neck Neck Exam: Neck Supple, Trachea Midline Pulmonary Resp Exam: Clear Bilaterally, Breath Sounds Equal, No Distress Cardiology CV Exam: Regular, Normal Sinus Rhythm Gastrointestinal/Abdomen GI Exam: Soft, Non-Tender, Bowel Sounds Present Musculoskeletal MS Remarks b/l feet dressing intact Integumentary Skin Exam: Warm, Dry, Ulcer(s) Extremeties Extremities Exam: No Edema, Pedal Pulses Palpable Neurologic Neuro Exam: Alert, Awake, Oriented, Speech Clear, Moving All Extremities Psychiatric Psych Exam: Appropriate Responses VTE Prophylaxis VTE Prophylaxis Device: SCDs Assessment/Plan Problem List: (1) Cellulitis of toe of right foot (2) Osteomyelitis (3) Failure of outpatient treatment (4) Hypertension (5) Osteoarthritis (6) Hemochromatosis (7) Alcohol abuse, daily use Assessment/Plan 65-year-old white male with history of hemochromatosis with joint deformities, presented to emergency room for evaluation of right foot second toe ulceration that has not improved after being on oral antibiotics. Had MRI done, positive for osteomyelitis. -Continue with empiric antibiotics, follow cultures s/p WBC scan. neg for osteo - sp I&D R 2 nd toe & l 2 nd toePartial phalangectomy/ostectomy R and L 2nd toes - - wound care / dressing change - ID f/u for abx rec - analgesic prn History hemochromatosis, with prior phlebotomy Continue to monitor Hypertension, stable Continue home medications Osteoarthritis, with prior history of joint replacement surgery Continue with home medications Daily alcohol use-stable -Alcohol abuse counseling completed Continue with Valium when necessary Continue with folic acid and thiamine -Monitor for withdrawal symptoms PPI for GI prophylaxis Claritin 10 mg po daily. ss for d./c planning / d.c home when ok w Podiatry & ID D/W pt. will f/u Problem Qualifiers (1) Osteomyelitis: Qualified Code: M86.171 - Acute osteomyelitis of right foot (2) Hypertension: Qualified Code: I10 - Essential hypertension (3) Osteoarthritis: Qualified Code: M19.90 - Osteoarthritis, unspecified osteoarthritis type, unspecified site (4) Hemochromatosis: Qualified Code: E83.118 - Other hemochromatosis Radha Costa MD Mar 16, 2016 10:47
--- NOTE | 2016-03-16 10:48 | HHI.PR ---
Subjective History of Present Illness feels well pain is in control No fever or chills No N/V No abd pain ambulating w surgical boots eager to go home offers no other c/o Vitals/Results Intake & Output 03/15/16 03/15/16 03/16/16 15:00 23:00 07:00 Intake Total 340 ml 480 ml 0 ml Output Total 600 ml 350 ml 600 ml Balance -260 ml 130 ml -600 ml Intake Oral 340 ml 480 ml 0 ml IV Total 0 ml 0 ml Output Urine Total 600 ml 350 ml 600 ml # Bowel Movements 0 Vital Signs Vital Signs Date Time Temp Pulse Resp B/P Pulse Ox O2 Delivery O2 Flow Rate FiO2 03/16/16 08:00 97.9 74 14 136/96 97 03/16/16 00:00 97.4 76 18 128/76 95 03/16/16 00:00 97.4 76 18 128/76 95 03/15/16 20:00 98.2 81 20 136/93 93 03/15/16 16:00 97.1 87 17 117/75 94 03/15/16 12:00 97.3 100 17 135/74 95 CBC/BMP: 03/14/16 2322 03/12/16 1135 Physical Exam General General Appearance: Well Nourished, No Acute Distress, Comfortable Eyes Eye Exam: Pupils Equal, Sclera White, Extraocular Movement Intact Ears & Nose Ears & Nose Exam: Nasal Mucosa [place] Throat Throat Exam: Oral Mucosa [place] & Moist Neck Neck Exam: Neck Supple, Trachea Midline Pulmonary Resp Exam: Clear Bilaterally, Breath Sounds Equal, No Distress Cardiology CV Exam: Regular, Normal Sinus Rhythm Gastrointestinal/Abdomen GI Exam: Soft, Non-Tender, Bowel Sounds Present Musculoskeletal MS Remarks b/l feet dressing intact Integumentary Skin Exam: Warm, Dry, Ulcer(s) Extremeties Extremities Exam: No Edema, Pedal Pulses Palpable Neurologic Neuro Exam: Alert, Awake, Oriented, Speech Clear, Moving All Extremities Psychiatric Psych Exam: Appropriate Responses VTE Prophylaxis VTE Prophylaxis Device: SCDs Assessment/Plan Problem List: (1) Cellulitis of toe of right foot (2) Osteomyelitis (3) Failure of outpatient treatment (4) Hypertension (5) Osteoarthritis (6) Hemochromatosis (7) Alcohol abuse, daily use Assessment/Plan 65-year-old white male with history of hemochromatosis with joint deformities, presented to emergency room for evaluation of right foot second toe ulceration that has not improved after being on oral antibiotics. Had MRI done, positive for osteomyelitis But ceretec scan neg for osteo - sp I&D R 2 nd toe & l 2 nd toePartial phalangectomy/ostectomy R and L 2nd toes - - wound care / dressing change per podiatry - ID rec po abx for 10 days -analgesic prn History hemochromatosis, with prior phlebotomy Continue to monitor Hypertension, stable Continue home medications Osteoarthritis, with prior history of joint replacement surgery Continue with home medications Daily alcohol use-stable -Alcohol abuse, stop drinking alcohol No evid of withdrawal symptoms PPI for GI prophylaxis Claritin 10 mg po daily. medically stable for d/c d./c home today f/u pcp f/u podiatry next wk see orders total time spent > 38 min Problem Qualifiers (1) Osteomyelitis: Qualified Code: M86.171 - Acute osteomyelitis of right foot (2) Hypertension: Qualified Code: I10 - Essential hypertension (3) Osteoarthritis: Qualified Code: M19.90 - Osteoarthritis, unspecified osteoarthritis type, unspecified site (4) Hemochromatosis: Qualified Code: E83.118 - Other hemochromatosis Radha Costa MD Mar 16, 2016 10:48 Radha Costa MD Mar 16, 2016 10:48
[2016-03-16] MEDS ORDERED: LEVA750T PO (11:03)
[2016-03-16] MEDS ORDERED: CLIN150 PO (11:03)
[2016-03-16] MEDS ORDERED: OXYC1TAB63 PO (11:03)
--- NOTE | 2016-03-16 19:11 | HHI.DS ---
Discharge Summary Admission Date Mar 12, 2016 at 12:26 Discharge Date: Mar 16, 2016 Admitting Diagnosis osteomyelitis (1) Osteomyelitis (2) Hemochromatosis (3) Cellulitis of toe of right foot (4) Alcohol abuse, daily use (5) Hypertension (6) Osteoarthritis (7) Failure of outpatient treatment Brief History This was a 65-year-old male with past medical history of hemochromatosis, chronic joint deformities secondary to hemochromatosis, webbed toes, hypertension. Patient presented to the emergency room for evaluation of right foot second toe swelling with increased drainage and redness. Patient endorsed that approximately 2-3 months ago noted that a pressure area on the second toe of the right foot due to a joint deformity. He saw a sales activity manager who ordered a spacer to put between his toes. Over time, he noted increased redness, which led to an ulcerated area that was deep enough that you "could put tip of pencil ". In January, patient traveled to the [facility], where he has a home. While over there, he did a lot of walkiing and noted increased swelling. His squeezed "pus" out of it. He went to see a friend of his who is a surgeon in the [facility] and was told to return to the [facility] and see a sales activity manager for possible debridement and antibiotics. Patient went to see Dr. aFust for the first time 2 weeks ago. He was put on oral antibiotics and Santyl ointment. Additionally an MRI was done that showed osteomyelitis. According to the , patient was supposed to follow-up with Dr. Laurent (Infectious disease ) for IV antibiotics but they were not able to obtain an appointment. Patient stated that the redness has increased, the wound is not as deep but continues to be tender with some lovell drainage. He's had some chills, no fever. Patient presented to the emergency room as he was concerned that the infection was not improving and he was not able to get in to see infectious disease independent crop consultant. He denied any other symptoms, no chest pain, no shortness of breath, no nausea, no vomiting, no diarrhea. He completed antibiotics-Bactrim this morning. Cultures were obtained at Dr. Faust but doesn't know results. Patient stated that his hemochromatosis is stable, his last phlebotomy was many years ago, they used to be more frequently. Ferritin levels had been stable. He was originally diagnosed in 1993. Other than the joint problems, he had no other complications associated with condition. Pt. was evaluated in the emergency room , laboratory workup was completed and was essentially unremarkable. CBC/BMP: 03/14/16 2322 03/12/16 1135 Significant Findings Laboratory Tests Test 03/14/16 23:22 Red Blood Count 4.07 MIL/MM3 (4.50-5.90) Hematocrit 37.8 % (39.0-51.0) Imaging Last Impressions Foot X-Ray 03/14/16 0000 Signed Impressions: Service Date/Time: Monday, March 14, 2016 22:37 - CONCLUSION: Primary degenerative changes are noted throughout the left foot. Ke Jolly MD Tumor Localization 03/13/16 0000 Signed Impressions: Service Date/Time: Sunday, March 13, 2016 13:45 - CONCLUSION: There is some soft tissue uptake surrounding the second digit of the right foot distally, no definite abnormal uptake is seen within the bone to suggest osteomyelitis. Castillo Wood MD PE at Discharge Physical Exam General General Appearance: Well Nourished, No Acute Distress, Comfortable Eyes Eye Exam: Pupils Equal, Sclera White, Extraocular Movement Intact Ears & Nose Ears & Nose Exam: Nasal Mucosa [place] Throat Throat Exam: Oral Mucosa [place] & Moist Neck Neck Exam: Neck Supple, Trachea Midline Pulmonary Resp Exam: Clear Bilaterally, Breath Sounds Equal, No Distress Cardiology CV Exam: Regular, Normal Sinus Rhythm Gastrointestinal/Abdomen GI Exam: Soft, Non-Tender, Bowel Sounds Present Musculoskeletal MS Remarks b/l feet dressing intact Integumentary Skin Exam: Warm, Dry, Ulcer(s) Extremeties Extremities Exam: No Edema, Pedal Pulses Palpable Neurologic Hospital Course The following diagnoses were evaluated this patient and his plan of care during this hospital stay. Assessment/Plan Problem List: (1) Cellulitis of toe of right foot (2) Osteomyelitis (3) Failure of outpatient treatment (4) Hypertension (5) Osteoarthritis (6) Hemochromatosis (7) Alcohol abuse, daily use Assessment/Plan Initially on admission labs were drawn which noted no WBC elevation, lactic acid lab was normal. Wound Cultures were obtained, patient was started on empiric antibiotics. On admission patient also had a MRI done and was positive for osteomyelitis, but ceretec scan neg for osteomyelitis. Podiatry consulted and performed a I&D R 2 nd toe & l 2 nd toePartial phalangectomy/ostectomy R and L 2nd toes- wound care / dressing changes were performed per podiatry - ID was consult to follow patient and recommended po abx for 10 days. Patient was given-analgesic prn pain management. History hemochromatosis, with prior phlebotomy was monitored during hospital stay Continue to monitor Hypertension was stable. Home medications were reconciled and continued Osteoarthritis, with prior history of joint replacement surgery was noted and monitored during hospital stay. Continue with home medications Daily alcohol use-stable and monitored. Education was given for -Alcohol abuse and to stop drinking alcohol No evidence of withdrawal symptoms PPI for GI prophylaxis Claritin 10 mg po daily. medically stable for d/c today per and kim Patient was d./c home today. Pt Condition on Discharge: Stable Discharge Disposition: Discharge Home Discharge Instructions DIET: Follow Instructions for: Heart Healthy Diet Additional Diet Instructions: no alcohol Fluid Restrictions: none Activities you can perform: Weight Bearing as Judy Other Activity Instructions: use surgical boot when walking Follow up Referrals: PCP Follow-up - 1 Week Podiatry - 3-5 Days New Medications: Clindamycin (Cleocin) 150 Mg Cap 300 MG PO Q8HR infection #27 CAP Levofloxacin (Levaquin) 750 Mg Tab 750 MG PO Q24H Infection #9 TAB Oxycodone-Acetaminophen (Oxycodone-Acetaminophen) 5-325 mg Tab 1 TAB PO Q4HR PRN PAIN #50 TAB Continued Medications: Amlodipine (Amlodipine) 5 Mg Tab 5 MG PO HS Blood Pressure Management #30 Ref 0 TAB Diazepam (Valium) 10 Mg Tab 10 MG PO HS PRN INSOMNIA Ref 0 TAB Finasteride (Proscar) 5 Mg Tab 5 MG PO DAILY Do not crush. Manage Prostate Problems #30 Ref 0 TAB Meloxicam (Mobic) 15 Mg Tab 15 MG PO DAILY Arthritis pain Ref 0 TAB Omeprazole (Omeprazole) 20 Mg Tab 20 MG PO DAILY #30 Ref 0 TAB Tamsulosin (Tamsulosin) 0.4 Mg Cap 0.4 MG PO DAILY Manage Prostate Problems #30 Ref 0 CAP Discontinued Medications: Oxycodone-Acetaminophen (Percocet) 5-325 mg Tab 1 TAB PO Q6H PRN PAIN Ref 0 TAB Keke Mishra Mar 16, 2016 19:11
--- NOTE | 2016-03-23 08:03 | MP ---
cc: CROW LU PILY DATE OF SURGERY 03/14/2016 DATE OF 1950 INDICATIONS This patient is a 65-year-old male who presented to the emergency department with suspected osteomyelitis of the right second digit and painful bony lesion to the left second digit. Upon further examination, he had an MRI result that previously showed a suspicion for osteomyelitis, but it was uncertain stating that could also be the reaction of the inflammation in the wound that was just noted superficial to this area so it could not be confirmed, therefore a white blood cell Ceretec scan was ordered and was found to be negative for osteomyelitis. I discussed with the patient that in order to remove the wound and the bony abnormality under the area, my recommendation is that he undergo excision of lesion with partial phalangectomy an ostectomy of the right second toe as well as ostectomy phalangectomy of the left second toe in order to remove the bony prominence that is causing the lesions to occur secondary to this underlying deformity. The patient consented to the procedure. All risks, benefits and potential complications were explained in detail to the patient and he consented. PROCEDURE He was seen in preop holding by myself, nursing staff and Anesthesia where the correct patient side and site were all confirmed to be correct in the right and left foot. He was taken back to the surgical suite, placed in the supine position where right and left feet were prepped and draped in normal sterile fashion. Timeouts were performed as per hospital protocol. The procedure for the right foot was performed second. The left foot procedure was performed first to keep a clean nature of not having a wound present to the area. An incision was made to the dorsal and medial aspect of the second proximal interphalangeal joint of the second digit. Care was taken to avoid neurovascular structures and bone was exposed to remove the medial aspect of the proximal phalangeal head. The area was then copiously irrigated with normal saline followed by primary closure with 3-0 nylon. A dressing consisting of Adaptic, 2 x 2, Lisa and a small Jakob bandage was applied to the left foot. Attention was then directed to the dorsal and medial aspect of the right second digit where two semi-elliptical incisions were made to remove the medial ulceration of the second digit which measured approximately 0.6 cm in diameter. Upon removal of this area, the bone was exposed. A saw blade was used to remove the medial aspect of the proximal phalangeal head in this area followed by irrigation and primary closure also with 3-0 nylon suture. The bone of each digit was sent to pathology for gross microscopic examination. There was no necrotic tissue noted to either digit. No purulence and no sign of infection prior to closure. The patient tolerated the procedure and anesthesia well without complications and was taken to PACU with vital signs stable and vascular status intact to her bilateral feet. He will be weightbearing to tolerated and bilateral surgical shoes and follow up in clinic in a week. I do not feel like he needs continued antibiotic secondary to negative diagnosis for osteomyelitis. SURGEON Crow Lu MD [employer] Staff PREOPERATIVE DIAGNOSIS Painful exostosis right and left second digits, painful hammer toes right and left second digits. POSTOPERATIVE DIAGNOSIS Painful exostosis right and left second digits, painful hammer toes right and left second digits. PROCEDURE Partial phalangectomy/ostectomy right and left second toes. PROPHYLAXIS Two grams of Ancef IV preoperatively PATHOLOGY Bone right second toe and bone left second toe both sent to pathology for gross and microscopic exam. ANESTHESIA General endotracheal anesthesia plus 10 mL of 2% lidocaine plain local block to right and left second digits. ESTIMATED BLOOD LOSS Minimal COMPLICATIONS None CONDITION Stable to PACU. DISPOSITION Weightbearing as tolerated bilaterally in surgical shoe. Follow up in clinic in one week for a dressing change. Crow SAGASTUME/DJL /5:40 PM /7:52 AM
== END 2016-03-16 13:25 | disposition home or self-care (01) | DRG 517 ==
LOC: NEPC 11:00 → NEDA 12:26 → N07A 20:58
PROVIDERS: ADMIT Specialist; ATTEND Specialist
PROC: 0QBR3ZZ Excision of Left Toe Phalanx, Percutaneous Approach (ICD-10-PCS; 2016-03-14)
PROC: 0QB Lower Bones, Excision (ICD-10-PCS; 2016-03-14)
PROC: HZ39ZZZ Individual Counseling for Substance Abuse Treatment, Continuing Care (ICD-10-PCS; principal; 2016-03-14 21:28)
DX: M86.171 Other acute osteomyelitis, right ankle and foot (principal); I10 Essential (primary) hypertension; L03.031 Cellulitis of right toe; E83.119 Hemochromatosis, unspecified; M19.90 Unspecified osteoarthritis, unspecified site; F10.10 Alcohol abuse, uncomplicated; M25.774 Osteophyte, right foot; M20.42 Other hammer toe(s) (acquired), left foot; M20.41 Other hammer toe(s) (acquired), right foot; Z91.19 Patient's noncompliance with other medical treatment and regimen; M89.9 Disorder of bone, unspecified; N40.0 Benign prostatic hyperplasia without lower urinary tract symptoms
CPT/HCPCS: 73630; 78807; 78999; 80053; 83605; 85025; 85027; 85610; 85652; 85730; 86140; 86403; 87040; 87070; 87205; 88304; 88307; 88311; 93005; 96365; A9569; J1580; J1956; J2405; J2543; J3010; J3370; J7050; L3260

== ENCOUNTER → 2016-10-19 | Day surgery (SDC) | payer MEDICARE, BC ==
[~2016-10-19] MED LIST: ACETAMINOPHEN 1000 MG/100 ML 100 ML IV ONE; AMLO5TAB2 PO; BUPIVACAINE/EPINEPHRINE 0.25% PF 30 ML VIAL INFIL ONE; CLIN150 PO; DIAZ10 PO; KETOROLAC TROMETHAMINE 30 MG/ML (IVP) VIAL IV PUSH ONE; LACTATED RINGER'S 1000 ML INJ 1,000 ML ONE; LEVA750T PO; LIDOCAINE 1%/EPINEPHrine 1:100,000 SOLN 30 ML VIAL INFIL ONE; MIDAZOLAM HCL 2 MG/2 ML VIAL ONE; MOBI15TA PO; OMEP20TA PO; ONDANSETRON HCL 4 MG/2 ML VIAL IV PUSH ONE; OXYC1TAB63 PO; PROPOFOL 200 MG/20 ML AMP IV ONE; PROS5TAB PO; SODIUM CHLOR 0.9% 250 ML BAG IV ONE; TAMS0.4C4 PO; VANCOMYCIN HCL 1000 MG VIAL ONE; ceFAZolin INJ 1,000 MG VIAL ONE
--- NOTE | 2016-10-21 12:12 | MP ---
cc: MARI REID M.D., JOHN R. D.O. DATE OF SURGERY: 10/19/2016 PROCEDURE: Right inguinal hernia repair with mesh. PREOPERATIVE DIAGNOSIS: Reducible symptomatic right inguinal hernia. POSTOPERATIVE DIAGNOSIS: Reducible symptomatic right inguinal hernia. ANESTHESIA: LMA. SURGEON: Susie Reid MD. CUSTOM STUDIO COORDINATOR: EAN Moody. ESTIMATED BLOOD LOSS: Less than 10 mL FLUIDS: 950 mL Crystalloid COMPLICATIONS: None. DRAINS: None. SPECIMEN: None. PROCEDURE IN DETAIL The patient was seen in the holding area and the right groin marked by the undersigned and confirmed by the patient. He was taken to the operating room and placed on the operating table in the supine position. The right groin was shaved, prepped and draped including the genitals. Time-out was taken confirming the correct patient, site, and procedure to be performed. The right groin region was infiltrated with local anesthetic. An oblique incision made above the groin crease. Dissection was carried down to the external oblique fascia where further subfascial injections were made with local anesthetic. The external oblique fascia was then slit in the direction of the fibers and underlying tissues swept free from the external oblique fascia. The spermatic cord structures were brought up on a Christina drain and dissection carried back to the internal ring. The hernia sac was dissected free from the spermatic cord structures and inverted into the abdominal cavity. It was noted to have the appendix within it and this was easily reduced back into the abdominal cavity. A 3 x 6 inch piece of atrium mesh was brought up and transfixed to the pubic tubercle with a 2-0 Prolene suture. This was then run along the shelving edge of the inguinal ligament to complete the lateral edge of the repair. The mesh was slit longitudinally and then trimmed to size to fit the hernia defect. The medial leaf of mesh was fixed at multiple points with interrupted 2-0 Prolene suture. Care was taken to leave the iliohypogastric nerve in its clark's point tissues with minimal dissection around it. Care was taken to avoid placing any sutures near the nerve as much as possible. When this was completed, the medial leaf of mesh was brought over the lateral leaf and fixed down to the inguinal ligament. This created a new internal ring after placing two Prolene sutures. A third Prolene was placed medially to close down the mesh where the cut had been made slightly larger. This decreased the size of the new internal ring to minimize risk of recurrence. When this was completed and hemostasis was assured, the remaining local anesthetic was injected into the transversalis fascia and subcutaneous tissue. The external oblique fascia was closed with a running 3-0 Vicryl suture with care taken to keep the underlying tissue free from the closure. The wound was reapproximated with interrupted 3-0 Vicryl suture and the skin closed with 5-0 PDS in a running subcuticular fashion. The wound was dressed with Telfa and Tegaderm and the patient was taken back to the recovery room in stable condition. Sponge, needle and instrument counts were reported be correct. The patient tolerated the procedure well. MD MIGUEL Zazueta/PERLA /10:55 AM /12:02 PM
== END | disposition home or self-care (01) ==
LOC: ESDC 08:19
PROVIDERS: ATTEND Surgery Trauma Surgery
DX: K40.90 Unilateral inguinal hernia, without obstruction or gangrene, not specified as recurrent (principal)
CPT/HCPCS: 00830; 49505; C1781; J0131; J0690; J1885; J2250; J2405; J3010; J3370; J7050; J7120